=== PATIENT | female | born 1995 | race Caucasian/White ===

== ENCOUNTER 2021-04-23 10:25 | Outpatient (REF) | payer SELFPAY ==
[2021-04-25 12:41] LABS: COVID-19 RT-PCR UVMMC Result Negative (Negative)
== END 2021-04-23 10:26 | disposition home or self-care (01) ==
LOC: NCHCN 10:25
PROVIDERS: PCP Internal Medicine; Visit Provider Physician Assistant
DX: Z20.822 Contact with and (suspected) exposure to COVID-19 (principal); J06.9 Acute upper respiratory infection, unspecified
CPT/HCPCS: U0003